=== PATIENT | male | born 1935 | race Caucasian/White ===

== ENCOUNTER 2024-06-10 11:09 | Emergency (ER) | payer MEDICARE ==
[~2024-06-10] VITALS: Ht 177.8 cm; Wt 68.0 kg
[~2024-06-10 11:09] MED LIST: FINASTERIDE5 MG PO; FLECAINIDE ACE100 MG PO; FLOMAX0.4 MG PO; METFORMIN HCL500 M2 PO; VASCEPA1 GM PO; XARELTO20 MG PO; ZETIA10 MG PO
[2024-06-10 11:47] VITALS: PULSE 86; RESP 18; TEMP 97.8; O2SAT 100
== END 2024-06-10 12:35 | disposition home or self-care (01) ==
LOC: ER 11:39
DX: T69.9XXA Effect of reduced temperature, unspecified, initial encounter (principal); R20.0 Anesthesia of skin; I10 Essential (primary) hypertension; E11.9 Type 2 diabetes mellitus without complications; E78.5 Hyperlipidemia, unspecified; Z95.810 Presence of automatic (implantable) cardiac defibrillator
CPT/HCPCS: 99283